=== PATIENT | female | born 1990 | race Caucasian/White ===

== ENCOUNTER 2021-10-15 12:55 | Outpatient (CLI) | payer OTHER ==
[~2021-10-15] VITALS: Ht 162.6 cm; Wt 73.6 kg
[2021-10-15] MEDS ORDERED: D5 LR IV SOLUTION 1,000 ML IV ONE (13:40)
[2021-10-15] MEDS ORDERED: AMPICILLIN FOR IV USE 2,000 MG in WATER (STERILE) FOR INJECTION 14.8 ML IV ONE (14:15)
[2021-10-15] MEDS ORDERED: D5 LR IV SOLUTION 1,000 ML IV SCH (14:15)
[2021-10-15] MEDS ORDERED: BETAMETHASONE ACE/NA PHOS 6 MG/ML (CELESTONE SOLUSPAN) IM SCH (14:15)
[2021-10-15] MEDS ORDERED: AZITHROMYCIN 250 MG TAB (ZITHROMAX) PO NR (14:15)
[2021-10-15] MEDS ORDERED: CALCIUM GLUC. 10% 4.65 MEQ/10 ML VIAL IV PRN (14:15)
[2021-10-15] MEDS ORDERED: MAGNESIUM 4 GM/100 ML IVPB 100 ML IV SCH (14:15)
--- NOTE | 2021-10-15 14:31 | Diagnostic Imaging Report ---
INDICATION: Vaginal bleeding and leaking fluid. TECHNIQUE: Multiple real-time grayscale images were obtained over the gravid uterus. COMPARISON: None. FINDINGS: There is a single live fetus in a transverse presentation with head to maternal right. heart rate was recorded at 119 BPM. Placenta is posterior and fundal. Amniotic fluid index is low measuring 2.9 cm. Cervical length is 4 cm. Biometrical measurements are as follows: Biparietal 5.56 cm, age 23 weeks 0 days. Head circumference 20.67 cm, age 22 weeks 6 days. Abdominal circumference 20.54 cm, age 25 weeks 1 days. Femur length 3.88 cm, age 22 weeks 4 days. Sonographic estimate age: 23 weeks 2 days. Sonographic estimated date of delivery: 02/08/2022. Estimated Weight: 631 gm (+/- 92 gm). LMP percentile: 96%. heart rate: 119 beats per minute. number: 1 of 1. IMPRESSION: Single live IUP measuring 23 weeks gestational age. Amniotic fluid index is low, consistent with oligohydramnios. No other significant abnormality is seen. Dictated by: Dictated on workstation # [id number]
--- NOTE | 2021-10-15 14:33 | History & Physical ---
History and Physical Date Seen by Provider: Oct 15, 2021 Time Seen by Provider: 14:27 This patient is a 31-year-old 3 para 0 A2 female who presents at 22-4/7 weeks gestation with complaint of spontaneous rupture membranes at noon today.She was in the room at [facility] from a vacation in [facility] she experienced a large gush of fluid.She does complain of contractions. She denies bleeding. She has had no other problems with this . Allergies are to latex and cephalexin Medications are vitamins and Zoloft Medical History is significant for 1 Surgical history is includes a D&C Social history patient is and accompanied by her Patient reports using tobacco and alcohol prior to but has stopped with a positive test Patient denies drug use Family history is noncontributory HEENT exam is normal Neck is supple no lymphadenopathy no thyromegaly Abdomen is gravid soft nontender Extremities show no clubbing or cyanosis. There is no Homans' sign. Pelvic exam by the admitting nurse shows cervix 4 cm dilated with gross rupture membranes. Bedside ultrasound demonstrated a fetus that was AGA With an BHAVNA of less than 3 And a transverse lie Lab work is pending monitor showsUterine activity and irritability and contractions are difficult to trace at this early gestation heart rateIs generally reassuring with some Variable appearing deceleration Assessment and plan This patient presents at 22-4/7 weeks gestation with spontaneous rupture membranes. She would like everything done for her baby that is likely to improve his survival. Towards that end we have discussed the patient's situation with [facility] NICU who would agree to take the baby and transferI have also spoken to Dr. Solorzano and [employer] at [facility] who agrees to take the patient in transfer and we will try to transfer the patient Patient is starting now on magnesium for toco lysis and neuro protection We will give ampicillin for GBS prophylaxis we will also give 500 of azithromycin for additional protection Patient will be given the first dose of betamethasone 12 mg Patient has a Robles catheter placed so that she can remain supine IV fluids running at 125 an hour Patient is aware of thePotentially grim prognosis for a baby delivering at less than 23 weeks gestation Patient does agree to excepting transfer to [facility] we are arranging a 22-4/7 weeks gestation with P PROM Allergies and Home Medications Allergies Coded Allergies: cephalexin (Verified Allergy, Unknown, 6/27/22) latex (Verified Allergy, Unknown, 10/15/21) Patient Home Medication List Home Medication List Reviewed: Yes CHARLOTTE MORALES MD Oct 15, 2021 14:33
[2021-10-15] MEDS ORDERED: MAGNESIUM SULFATE DRIP 500 ML IV SCH (14:45)
[2021-10-15] MEDS ORDERED: BETAMETHASONE ACE/NA PHOS 6 MG/ML (CELESTONE SOLUSPAN) ONE (15:01)
[2021-10-15] MEDS ORDERED: ONDANSETRON 4 MG/2 ML (SDV) Z0FRAN IVP ONE (15:15)
[2021-10-15] MEDS ORDERED: ONDANSETRON 4 MG/2 ML (SDV) Z0FRAN ONE (15:16)
[2021-10-15] MEDS ORDERED: PREN-37 PO (17:10)
[2021-10-15] MEDS ORDERED: SERT20OR PO (17:10)
== END 2021-10-15 15:22 | disposition other institution (70) ==
LOC: WSo 12:55 → LDRP 12:58 → WSo 15:22
PROVIDERS: ATTEND Obstetrics & Gynecology
DX: O42.912 Preterm premature rupture of membranes, unspecified as to length of time between rupture and onset of labor, second trimester (principal); O46.92 Antepartum hemorrhage, unspecified, second trimester; Z3A.23 23 weeks gestation of pregnancy
CPT/HCPCS: 76805; 84112; Q0114; 36415; 89060; 96372; 96374; 96375; 96376